=== PATIENT | male | born 1970 | race Caucasian/White ===

== ENCOUNTER 2020-03-04 12:39 | Emergency (ER) | payer MEDICAID ==
[~2020-03-04] VITALS: Ht 167.6 cm; Wt 77.1 kg
[2020-03-04] MEDS ORDERED: ACETAMINOPHEN 325MG TABLET PO ONE (13:45)
[2020-03-04 14:01] VITALS: BP 159/103
== END 2020-03-04 16:53 | disposition home or self-care (01) ==
LOC: ER 12:47
DX: U07.1 COVID-19 (principal); I10 Essential (primary) hypertension
CPT/HCPCS: 71045; 87635; 93005; 99285